=== PATIENT | female | born 1995 | race Caucasian/White ===

== ENCOUNTER 2019-11-16 12:57 | Emergency (ER) | payer OTHER, SELFPAY ==
[2019-11-16 12:59] VITALS: BP 97/33; PULSE 99; RESP 18; TEMP 37.7; O2SAT 96; BMI 25.8
--- NOTE | 2019-11-16 13:38 | RAD_ITS ---
STUDY: X-RAY CHEST REASON FOR EXAM: Female, 24 years old. HIGH ALTITUDE HIKE ONE WEEK AGO, HAVING ABDOMINAL PAIN AND SOB SINCE TECHNIQUE: PA and lateral views of the chest. COMPARISON: None. FINDINGS: EKG electrodes are seen. The lungs are clear and expanded. There is no demonstrated pleural abnormality. Normal size heart. Normal mediastinum and matias. Normal visualized pulmonary arteries. Normal visualized aortic arch and descending thoracic aorta. Normal visualized thoracic spine. Normal visualized ribs, clavicles, and shoulders. Contrast is seen within the renal collecting system most likely secondary to recent IV contrast sedation RAD/Chest PA and Lateral IMPRESSION: Normal x-ray examination of the chest. Electronically Signed: Anthony Nur, at 15:36 EDT , Service support ,
--- NOTE | 2019-11-16 13:39 | CT_ITS ---
STUDY: CT ABDOMEN AND PELVIS WITH CONTRAST REASON FOR EXAM: Female, 24 years old. LLQ PAIN, ROMO, NAUSEA, FEVER, SOB RADIATION DOSAGE (If Supplied By Facility): CTDIvol = ( 10.98 ) mGy, DLP = ( 655.60 ) mGycm TECHNIQUE: Transaxial images were obtained from the dome of the diaphragm to the symphysis pubis with oral contrast. Oral and amp;amp; IV Gastrografin and amp;amp; 100mL Isovue-300 was administered. Sagittal and coronal images were reconstructed. Individualized dose optimization techniques were used for this CT. COMPARISON: None. FINDINGS: The visualized lung bases are unremarkable. The visualized portions of the heart are within normal limits. Prominence of the biliary triads suggestive of a periportal edema. Small amount of pericholecystic fluid and mild gallbladder wall thickening. There is mild splenomegaly. Normal pancreas. Normal bilateral adrenal glands. Normal right kidney. Normal left kidney. Normal visualized stomach. Normal small intestine. Normal colon. The appendix is visualized and appears normal. Normal abdominal aorta. Normal inferior vena cava. Normal retroperitoneum. Normal urinary bladder. There is a 3.2 cm x 2.8 cm cyst in the left ovary. Small follicles are seen in the right ovary. IUD is seen within the uterus. Normal abdominal wall. Normal osseous structures. CT/Abdomen/Pelvis WITH Contrast IMPRESSION: Prominence of the portal triads suggestive of a hepatic edema with a small amount of pericholecystic fluid. Mild cardiomegaly. Electronically Signed: Anthony Nur, at 15:53 EDT , Service support ,
--- NOTE | 2019-11-16 14:14 | ED.DCSUM_ITS ---
History of Present Illness <Tab Farris - Last Filed: 11/16/19 16:20> Narrative: Patient presenting secondary to a fever and generalized illness. Patient is otherwise healthy. Patient reports that around a week ago she went on a road trip to [facility]. She states that she and her boyfriend did a rather aggressive hike where they did about 10 miles where there was 2000 feet of elevation change and their peak elevation was around 10,000 feet. She does report that she felt significantly fatigued after this, but the day following this she started to develop headaches and generalized illness. This been associated with some nausea and vomiting throughout the course of the week that is since resolved. Headaches are generalized. Patient does report that she has some neck pain but no difficulty with moving her neck. She also reports that she is now developed some left lower quadrant abdominal pain and generalized myalgias. Patient denies that she suffered any bug bites or skin wounds. She denies that her boyfriend has any similar symptoms. She does report that she has mild shortness of breath but no cough. No abnormal skin rashes. She is otherwise up-to-date on vaccines. Review of systems otherwise negative. <Tuan Alvarado - Last Filed: 11/19/19 17:42> Chief Complaint: Headache Past Medical History <Tab Farris - Last Filed: 11/16/19 16:20> Prior records reviewed: Yes Past Medical History: None Lives: Spouse/ Significant Other Smoking Status: Never smoker Alcohol: None Drugs: None <Tuan Alvarado - Last Filed: 11/19/19 17:42> - Allergies and Home Meds Allergies/Adverse Reactions: Allergies No Known Allergies Allergy (Verified 11/16/19 12:58) Primary Care Physician: Ruth Torres DO [STAFF PHYSICIAN] - 3-5 Days NOT,DEFINED [NON-STAFF] - Review of Systems General: Reports: Fever - Measured at home at 103, Malaise Eyes: Denies: Visual changes - bilaterally, Diplopia ENT: Reports: - - Somewhat foul taste in the mouth. Denies: Rhinorrhea, Sore throat Cardiovascular: Denies: Chest pain, Palpitations Respiratory: Reports: Dyspnea. Denies: Cough Gastrointestinal: Reports: Abdominal pain, Nausea, Vomiting Genitourinary: Denies: Dysuria, Hematuria, Frequency Musculoskeletal: Reports: Myalgias, Neck pain, Back pain Skin: Denies: Rash, Wounds Neurological: Reports: Headache Psych: Denies: Depression Endocrine: Denies: Polyuria, Polydipsia Hematologic: Denies: Easy bruising, Easy bleeding Allergy: Denies: Uticaria, Swelling of the mouth, Swelling of the tongue <Tuan Alvarado - Last Filed: 11/19/19 17:42> Physical Exam Vital Signs/Narrative: Vital Signs Temp Pulse Resp BP Pulse Ox 11/16/19 16:12 99.8 F H 77 16 92/68 97 11/16/19 14:56 100.5 F H 88 17 109/70 98 11/16/19 14:41 101.7 F H 98 11/16/19 14:34 82 18 102/63 98 11/16/19 12:59 100 F H 99 18 97/33 L 96 <Tab Farris - Last Filed: 11/16/19 16:20> Vital Signs/Narrative: Vital Signs Temp Pulse Resp BP Pulse Ox 11/16/19 12:59 100 F H 99 18 97/33 L 96 Inital Vital Signs reviewed: Yes General: Well nourished, Well developed, No Acute Distress Head: Normocephalic, Atraumatic Eyes: Perrl, EOMI ENT: Moist mucous membranes, No rhinorrhea, - - No evidence of embedded ticks on the scalp Neck: Supple, Nontender, - - Negative Brudzinski, Kernig, and jolt testing Cardiovascular: Regular rate, Regular rhythm, No murmurs, - - 2+ radial pulses bilaterally symmetric Respiratory: No distress, CTA bilaterally, Chest nontender Abdomen: Soft, Nondistended, Normal bowel sounds, Tender - Left lower quadrant no guarding or rebound Back: Nontender, Normal Inspection Extremities: Nontender, No edema Skin: Normal color, No rash Neurological: Alert, Oriented x3, Cranial nerves II-XII grossly intact, Normal Strength, Normal Sensation Psychological: Normal affect, Normal Mood <Tuan Alvarado - Last Filed: 11/19/19 17:42> Diagnostic/Tx/Re-eval Impressions Chest X-Ray 11/16/19 13:38 IMPRESSION: Normal x-ray examination of the chest. Electronically Signed: Anthony Nur, at 15:36 EDT , Service support , Abdomen/Pelvis CT 11/16/19 13:39 IMPRESSION: Prominence of the portal triads suggestive of a hepatic edema with a small amount of pericholecystic fluid. Mild cardiomegaly. Electronically Signed: Anthony Nur, at 15:53 EDT , Service support , 11/16/19 13:38 Chest PA and Lateral [RAD] Stat 11/16/19 13:39 CT Abd [Abdomen/Pelvis WITH Contrast] [CT] Stat Laboratory Results 11/16/19 11/16/19 11/16/19 14:40 14:45 14:45 WBC 8.3 RBC 3.77 L Hgb 11.6 L Hct 34.2 L MCV 90.7 MCH 30.8 MCHC 33.9 RDW Std Deviation 41.2 RDW Coeff of Jocelin 12.5 Plt Count 148 L MPV 10.6 Immature Gran % (Auto) 2.300 H Neut % (Auto) 71.7 H Lymph % (Auto) 9.9 L [place] % (Auto) 16.0 H Eos % (Auto) 0.0 Baso % (Auto) 0.1 Absolute Neuts (auto) 5.9 Absolute Lymphs (auto) 0.82 L Nucleated RBC % 0 Differential Comment SCANNED PT 14.0 INR 1.1 APTT 36.4 H Sodium Potassium Chloride Carbon Dioxide Anion Gap BUN Creatinine Estim Creat Clear Calc Est GFR (MDRD) Af Amer Est GFR (MDRD) Non-Af BUN/Creatinine Ratio Glucose Lactic Acid Calcium Total Bilirubin AST ALT Alkaline Phosphatase Total Protein Albumin Globulin Albumin/Globulin Ratio Urine Color Lori Urine Clarity Sl. Cloudy Urine pH 6.5 Ur Specific [place] 1.010 Urine Protein 100 H Urine Glucose (UA) Normal Urine Ketones 50 H Urine Occult Blood 250 H Urine Nitrite Positive H Urine Bilirubin Negative Urine Urobilinogen 1 H Ur Leukocyte Esterase 500 H Urine RBC 25-50 SEEN Urine WBC 25-50 SEEN Ur Squamous Epith Cells 0-5 SEEN Urine Bacteria 2+ Urine Mucus 0 SEEN Urine Test Negative 11/16/19 11/16/19 14:45 14:45 WBC RBC Hgb Hct MCV MCH MCHC RDW Std Deviation RDW Coeff of Jocelin Plt Count MPV Immature Gran % (Auto) Neut % (Auto) Lymph % (Auto) [place] % (Auto) Eos % (Auto) Baso % (Auto) Absolute Neuts (auto) Absolute Lymphs (auto) Nucleated RBC % Differential Comment PT INR APTT Sodium 134 L Potassium 3.4 L Chloride 101 Carbon Dioxide 26.0 Anion Gap 7 BUN 9 Creatinine 0.77 Estim Creat Clear Calc 113.65 Est GFR (MDRD) Af Amer 118 Est GFR (MDRD) Non-Af 97 BUN/Creatinine Ratio 11.7 Glucose 99 Lactic Acid 0.9 Calcium 8.5 Total Bilirubin 0.90 AST 16 ALT 31 Alkaline Phosphatase 113 Total Protein 7.2 Albumin 2.8 L Globulin 4.4 H Albumin/Globulin Ratio 0.6 L Urine Color Urine Clarity Urine pH Ur Specific [place] Urine Protein Urine Glucose (UA) Urine Ketones Urine Occult Blood Urine Nitrite Urine Bilirubin Urine Urobilinogen Ur Leukocyte Esterase Urine RBC Urine WBC Ur Squamous Epith Cells Urine Bacteria Urine Mucus Urine Test Urine is consistent with infection. Culture was sent since she reports recurrent urinary tract infections. She does have mild anemia. There is no bandemia or significant shift. CT is nondiagnostic. Chest x-ray is negative. Patient was informed of her results. She has no antibiotic allergies. - Medical Decision Making And is to discharge to home with prescription for antibiotic. She was informed that the COVID and Lyme titer are pending. <Brenton,Tab - Last Filed: 11/16/19 16:20> - Medical Decision Making Patient presented secondary to fever, generalized illness, headache, abdominal pain, nausea and vomiting. She has a very broad constellation of symptoms, but she was somewhat hypotensive upon arrival and has a recent history of travel, so broad work-up was obtained. I did send a Lyme titer on the patient, and entertain the idea of the patient having bella mountain spotted fever or other infections. She does not have any abnormal skin rashes, any evidence of bite wounds, any target lesions, any attached ticks, or any rashes on her palms or soles. Patient was given antipyretics in the emergency department. Lab work including cultures, urinalysis, blood work, Lyme disease titer, CT abdomen and pelvis and chest x-ray were ordered. Patient does not appear to have evidence of bacterial meningitis and I do not feel that lumbar puncture is indicated. Patient's work-up is pending at this time, patient will be signed out to the oncoming provider who will follow up on the patient's lab work and imaging. Patient will be dispositioned at that time. <Tuan Alvarado - Last Filed: 11/19/19 17:42> ED Disposition <Tab Farris - Last Filed: 11/16/19 16:20> <Tuan Alvarado - Last Filed: 11/19/19 17:42> - Plan for ED Patient: Disposition: Home or Assisted Living Diagnosis: Fever, Complicated UTI (urinary tract infection), Dyspnea, COVID-19 ruled out Instructions: ED CYSTITIS Female Adult Prescriptions: Cephalexin [Keflex] 500 mg PO Q6 #40 cap Prescription Printed Referrals: NOT,DEFINED [NON-STAFF] - Ruth Torres DO [STAFF PHYSICIAN] - 3-5 Days Additional Instructions: Since she did not have a primary care physician in the area were referred to Dr. Torres. Take antibiotics until gone Your COVID and Lyme test are pending.
[2019-11-16] MEDS: Acetaminophen 325 MG Tablet 650 MG PO (14:18)
[2019-11-16] MEDS: 0.9% Normal Saline 1,000 ML 999 ML IV (14:30)
[2019-11-16 14:34] VITALS: BP 102/63; PULSE 82; RESP 18; O2SAT 98
[2019-11-16 14:41] VITALS: TEMP 38.7; O2SAT 98
[2019-11-16 14:50] LABS: Mucous, Urine 0 SEEN /hpf (<or=2+)
[2019-11-16 14:52] LABS: Absolute Lymphocyte Count 0.82 X10^3/uL (0.83-4.51); Absolute Neutrophil Count 5.9 X10^3/uL (2.0-7.7); Basophil# 0.01 X10^3/uL; Basophil% 0.1 % (0-1); Hematocrit 34.2 % (37-47); Hemoglobin 11.6 g/dL (12.0-15.0); Lyme Ab Screen Interpretation REF LAB; Lymphocyte # 0.82 X10^3/ul (4.0); Lymphocyte % 9.9 % (19-41); Mean Corp Hgb Conc 33.9 g/dL (32-36); Mean Corpuscular Hgb 30.8 pg (27.0-32.0); Mean Corpuscular Volume 90.7 fL (81-99); Mean Platelet Vol. 10.6 fl (6.2-12.0); Monocyte# 1.32 X10^3/uL; NRBC Flagged by Analyzer 0 % (0-5); Neutrophil # 5.92 X10^3/uL (2.7-7.7); Neutrophil % 71.7 % (47-70); POSITIVE MORPHOLOGY YES; Platelet Count 148 K/mm3 (150-450); RBC Distribution Width CV 12.5 % (11.6-14.6); RBC Distribution Width SD 41.2 fl (35.1-43.9); Red Blood Count 3.77 M/mm3 (4.2-5.4); White Blood Count 8.3 K/mm3 (4.4-11.0)
[2019-11-16 14:54] LABS: Differential Indicated SCAN CRITERIA MET
[2019-11-16 14:56] VITALS: BP 109/70; PULSE 88; RESP 17; TEMP 38.1; O2SAT 98
[2019-11-16 15:02] LABS: Color, Urine Amber (Yellow); Glucose, Dipstick Normal (Normal); Ketone-Dipstick 50 mg/dl (Negative); Leukocyte Esterase-Dipstick 500 /ul (Negative); Nitrite-Dipstick Positive (Negative); Occult Blood-Urine 250 /ul (Negative); Protein-Dipstick 100 mg/dl (Negative); Urine Bilirubin Dipstick Negative (Negative); Urine Clarity Sl. Cloudy (Clear); Urine Urobilinogen 1 mg/dl (Normal); Urine pH 6.5 (5.0 - 8.0)
[2019-11-16 15:06] LABS: International Normalized Ratio 1.1
[2019-11-16 15:07] LABS: Partial Thromboplast Time 36.4 Seconds (24.1-36.2)
[2019-11-16 15:07] LABS: Bacteria 2+ /hpf (None Seen); Red Blood Cells-Urine 25-50 SEEN /hpf (0-5); Squamous Epithelial Cells - UA 0-5 SEEN /hpf (5-10); White Blood Cells 25-50 SEEN /hpf (0-5)
[2019-11-16 15:08] LABS: Internal QC Validated? YES +Cl - CLEAR BKGD; Pregnancy, Urine Negative Negative
[2019-11-16 15:15] LABS: ALB/GLOB Ratio 0.6 RATIO (0.9-2.4); AST(SGOT) 16 U/L (15-37); Alanine Aminotransfer ALT/SGPT 31 U/L (13-56); Albumin, Serum 2.8 g/dL (3.2-5.0); Alkaline Phosphatase 113 U/L (45-117); Anion Gap 7 (5-15); BUN 9 mg/dL (7-18); BUN/Creat Ratio 11.7 RATIO (10-20); Calcium,Total 8.5 mg/dL (8.5-10.1); Chloride 101 mmol/L (98-107); Creatinine, Serum 0.77 mg/dL (0.55-1.02); EST Glomerular Filtration Rate 97 mL/min (>60); Est Glom Filt Rate - Afr Amer 118 mL/min (>60); Estimated Creatinine Clearance 113.65 ml/min; Globulin 4.4 g/dL (2.2-4.2); Glucose 99 mg/dL (74-106); Potassium 3.4 mmol/L (3.5-5.1); Protein, Total 7.2 g/dL (6.4-8.2); Sodium Level 134 mmol/L (136-145)
[2019-11-16 15:16] LABS: Differential Comment SCANNED
[2019-11-16 15:21] LABS: Lactic Acid 0.9 mmol/L (0.4-1.9)
[2019-11-16 16:12] VITALS: BP 92/68; PULSE 77; PULSE 80; RESP 16; RESP 24; TEMP 37.7; O2SAT 97
[2019-11-16] MEDS: Cephalexin 250 MG Capsule 500 MG PO (17:26)
[2019-11-16 17:28] VITALS: BP 95/54; PULSE 78; RESP 14; TEMP 37.6; O2SAT 99
[2019-11-18 21:14] LABS: Lyme Scn Total Ab w/Rflx <0.91 ISR (0.00-0.90)
== END 2019-11-16 17:29 | disposition home or self-care (01) ==
PROVIDERS: Emergency Provider Emergency Medicine
DX: Z03.818 Encounter for observation for suspected exposure to other biological agents ruled out (principal); R50.9 Fever, unspecified; N39.0 Urinary tract infection, site not specified; R06.00 Dyspnea, unspecified; D64.9 Anemia, unspecified
CPT/HCPCS: 71046; 74177; 80053; 81001; 81025; 83605; 85025; 85610; 85730; 86618; 87040; 87086; 87088; 87186; 87635; 96360; 96361; 99284; G2023; J7030; Q9967; A4216; U0003